=== PATIENT | male | born 1970 | race Asian ===

== ENCOUNTER 2018-04-16 06:53 | Emergency (ER) | payer OTHER ==
[~2018-04-16] VITALS: Ht 182.9 cm; Wt 95.3 kg
[2018-04-16 07:02] VITALS: TEMP 97.7
[2018-04-16 08:05] VITALS: BP 128/72
== END 2018-04-16 08:05 | disposition home or self-care (01) ==
LOC: ED 06:53
DX: S09.90XA Unspecified injury of head, initial encounter (principal); W06.XXXA Fall from bed, initial encounter; Y92.89 Other specified places as the place of occurrence of the external cause
CPT/HCPCS: 99282